=== PATIENT | female | born 1985 | race African-American/Black ===

== ENCOUNTER 2018-02-17 20:13 | Emergency (ER) | payer BC, OTHER ==
[~2018-02-17] VITALS: Ht 152.4 cm; Wt 72.6 kg
[~2018-02-17 20:13] MED LIST: BACTROBAN CREAM30 G1 TOP; CIPROFLOXACIN500 M1 PO; DEPAKOTE 250MG250 M1 PO; FIORICET 50-301 EACH PO; IBUPROFEN 600600 M1 PO; IBUPROFEN 800800 MG PO; LEVOTHYROXIN0.088 MG PO; LEVOXYL75 MCG PO; MOTION RELIEF25 MG PO; NAPROSYN500 MG PO; NORCO 5-325 TA1 EACH PO; NORTRIPTYLINE H25 M3 PO; PEPCID40 MG PO; PERCOCET 5-3251 EACH PO; PHENERGAN 25 MG25 M1 PO; PREDNISONE 20 M20 MG PO; PROAIR HFA8.5 GM; TRANSDERM-SCO1 PATC1 TD; ULTRAM 50MG TAB50 MG PO; VALIUM2 MG PO; VISTARIL 25 MG25 M1 PO; ZOFRAN ODT4 MG PO
[2018-02-17] MEDS ORDERED: TOPAMAX 100 MG100 MG PO (21:19)
[2018-02-17] MEDS ORDERED: NAPROSYN500 MG PO (21:26)
[2018-02-17] MEDS ORDERED: VALIUM2 MG PO (21:26)
== END 2018-02-17 21:51 | disposition home or self-care (01) ==
LOC: ER 20:13
DX: M54.31 Sciatica, right side (principal); J45.909 Unspecified asthma, uncomplicated; Z98.890 Other specified postprocedural states; E89.0 Postprocedural hypothyroidism

== ENCOUNTER 2019-01-25 17:17 | Emergency (ER) | payer OTHER ==
[~2019-01-25] VITALS: Ht 152.4 cm; Wt 71.2 kg
[~2019-01-25 17:17] MED LIST changes: +TOPAMAX 100 MG100 MG PO
[2019-01-25 17:38] LABS: URINE BILIRUBIN NEGATIVE (Negative); URINE BLOOD NEGATIVE (Negative); URINE CLARITY CLEAR; URINE COLOR YELLOW; URINE GLUCOSE-RANDOM* NEGATIVE (Negative); URINE KETONES NEGATIVE (Negative); URINE LEUKOCYTES-REFLEX TRACE (Negative); URINE NITRITE-REFLEX NEGATIVE (Negative); URINE PROTEIN (DIPSTICK) NEGATIVE (Negative); URINE SPECIFIC GRAVITY 1.015 (1.005-1.035); URINE UROBILINOGEN 0.2 E.U./dl (0.2-1.0)
[2019-01-25 18:34] LABS: CREATININE 1.3 mg/dL (0.6-1.0); POTASSIUM 3.7 mmol/L (3.5-5.1)
[2019-01-25 18:40] LABS: ALBUMIN 3.3 g/dL (3.4-5.0); TOTAL BILIRUBIN 0.2 mg/dL (<0.1-1.0); TOTAL PROTEIN 7.7 g/dL (6.4-8.2)
[2019-01-25 19:32] LABS: ABSOLUTE NEUTROPHILS 4.5 thou/uL (1.4-8.2); BASOPHILS 1.1 % (0.0-2.0); HEMATOCRIT 33.1 % (37.0-47.0); HEMOGLOBIN 10.4 gm/dL (12.0-15.0); LYMPHOCYTES 30.1 % (24.0-44.0); MCH 23.7 pg (26.0-34.0); MCHC 31.5 g/dL (28.0-37.0); MCV 75.2 fL (80.0-100.0); MONOCYTES 6.6 % (1.0-8.0); POLYS 59.2 % (36.0-66.0); RDW 18.1 % (10.5-14.5); WBC 7.6 thou/uL (4.0-11.0)
[2019-01-25 20:01] LABS: ANISOCYTOSIS 2+; HYPOCHROMASIA 3+; LARGE PLATELETS FEW; MICROCYTES 3+
[2019-01-25 20:02] LABS: PLATELET COUNT 172 thou/uL (150-400)
[2019-01-25] MEDS ORDERED: OMEPRAZOLE 20 M20 M1 PO (20:18)
[2019-01-25] MEDS ORDERED: AMOXICILLIN 50500 M1 PO (20:18)
[2019-01-25] MEDS ORDERED: CLARITHROMYCIN500 MG PO (20:18)
[2019-01-25 20:59] VITALS: BP 115/74
== END 2019-01-25 21:00 | disposition home or self-care (01) ==
LOC: ER 17:17
PROVIDERS: Physician Assistant
DX: K29.70 Gastritis, unspecified, without bleeding (principal); B96.81 Helicobacter pylori [H. pylori] as the cause of diseases classified elsewhere; M54.5 Low back pain; G43.909 Migraine, unspecified, not intractable, without status migrainosus; J45.909 Unspecified asthma, uncomplicated; Z90.49 Acquired absence of other specified parts of digestive tract; Z98.890 Other specified postprocedural states; Z91.018 Allergy to other foods

== ENCOUNTER 2019-03-08 00:38 | Emergency (ER) | payer OTHER ==
[~2019-03-08] VITALS: Ht 162.6 cm; Wt 71.2 kg
[~2019-03-08 00:38] MED LIST changes: +AMOXICILLIN 50500 M1 PO; +CLARITHROMYCIN500 MG PO; +OMEPRAZOLE 20 M20 M1 PO
[2019-03-08] MEDS ORDERED: LEVOTHYROXINE200 MC1 PO (00:44)
[2019-03-08] MEDS ORDERED: PREDNISONE 20 M20 MG PO (01:20)
[2019-03-08 01:25] VITALS: BP 140/89
== END 2019-03-08 01:33 | disposition home or self-care (01) ==
LOC: ER 00:38
DX: L25.9 Unspecified contact dermatitis, unspecified cause (principal); J45.909 Unspecified asthma, uncomplicated; G43.909 Migraine, unspecified, not intractable, without status migrainosus; Z98.890 Other specified postprocedural states; Z90.89 Acquired absence of other organs; Z91.018 Allergy to other foods; Z87.891 Personal history of nicotine dependence

== ENCOUNTER 2020-09-21 20:30 | Emergency (ER) | payer OTHER ==
[~2020-09-21] VITALS: Ht 152.4 cm; Wt 68.0 kg
[~2020-09-21 20:30] MED LIST changes: +LEVOTHYROXINE200 MC1 PO
[2020-09-21 21:00] LABS: URINE BILIRUBIN NEGATIVE (Negative); URINE BLOOD NEGATIVE (Negative); URINE CLARITY CLEAR; URINE COLOR YELLOW; URINE GLUCOSE-RANDOM* NEGATIVE (Negative); URINE KETONES NEGATIVE (Negative); URINE LEUKOCYTES-REFLEX NEGATIVE (Negative); URINE NITRITE-REFLEX NEGATIVE (Negative); URINE PROTEIN (DIPSTICK) NEGATIVE (Negative); URINE UROBILINOGEN 0.2 E.U./dl (0.2-1.0)
[2020-09-21 21:52] LABS: ABSOLUTE NEUTROPHILS 5.6 thou/uL (1.4-8.2); BASOPHILS 1.1 % (0.0-2.0); EOSINOPHILS 2.1 % (0.0-3.0); HEMATOCRIT 33.4 % (37.0-47.0); HEMOGLOBIN 10.4 gm/dL (12.0-15.0); LYMPHOCYTES 22.1 % (24.0-44.0); MCH 23.5 pg (26.0-34.0); MCHC 31.1 g/dL (28.0-37.0); MCV 75.5 fL (80.0-100.0); MONOCYTES 8.3 % (1.0-8.0); PLATELET COUNT 233 thou/uL (150-400); POLYS 66.4 % (36.0-66.0); RBC 4.42 mil/uL (4.20-5.00); RDW 16.6 % (10.5-14.5); WBC 8.4 thou/uL (4.0-11.0)
[2020-09-21 21:56] LABS: ANION GAP 11 mmol/L (7-16); BUN 14 mg/dL (7-18); CHLORIDE 101 mmol/L (98-107); CO2 27 mmol/L (21-32); CREATININE 0.9 mg/dL (0.6-1.0); GLUCOSE 87 mg/dL (74-106); POTASSIUM 4.2 mmol/L (3.5-5.1); SODIUM 139 mmol/L (136-145)
[2020-09-21 22:02] LABS: ALBUMIN 3.8 g/dL (3.4-5.0); DIRECT BILIRUBIN < 0.1 mg/dL (<0.1-0.2); LIPASE 110 U/L (73-393); SGOT 13 U/L (15-37); SGPT 18 U/L (30-65); TOTAL BILIRUBIN 0.3 mg/dL (0.2-1.0); TOTAL PROTEIN 8.4 g/dL (6.4-8.2)
[2020-09-21 22:29] VITALS: BP 107/59
[2020-09-22] MEDS ORDERED: PEPCID40 MG PO (00:59)
== END 2020-09-22 01:10 | disposition home or self-care (01) ==
LOC: ER 20:30
PROVIDERS: Nurse Practitioner
DX: R10.30 Lower abdominal pain, unspecified (principal); J45.909 Unspecified asthma, uncomplicated; G43.909 Migraine, unspecified, not intractable, without status migrainosus; Z98.890 Other specified postprocedural states; Z91.018 Allergy to other foods; Z87.891 Personal history of nicotine dependence